=== PATIENT | male | born 2000 | race African-American/Black ===

== ENCOUNTER 2025-06-24 13:03 | Outpatient (AMB) | payer OTHER, SELFPAY ==
[2025-06-24 13:11] VITALS: BMI 39.4
--- NOTE | 2025-06-24 13:11 | A.OFFVIS_ITS ---
VS Expanded 06/24/25 13:11 07/02/25 12:57 Height 5 ft 9 in 5 ft 9 in Weight 266 lb 15.677 oz 267 lb BMI 39.4 39.4 Intake Visit Reasons: Obesity Nutrition Presentation Details: Pt presents MNT for obesity Food frequency fruits:0-1/d vex/wk dairy>4/d fish:0-1/wk fried foods: 3-4 x/wk Eating out /ordering: >1/d beverages: water, juice, soda etoh/smoking-- physical activity: ADL no food allergies ZBM-Dwtuwaz-Es.Jeor Equation Height: 5 ft 9 in Weight: 267 lb Resting Metabolic Rate: 2197.10 Calculated Activity Level: Sedentary Calories Needed to Maintain Weight: 2636.52 Diagnosis Nutrition problem #1: excessive energy intake As related to (etiology) #1: diagnosis As evidenced by (sign/symptom) #1: high BMI (39.4 on May/2025) and knowledge deficit of diet Assessment & Plan Assessment & Plan (1) Obesity (BMI 30-39.9): Code(s): E66.9 - Obesity, unspecified Category: Medical Plan: current wt: 121 kg ( 06/22 ) est kcal needs as per MSJ: 2600 est protein needs as per 1 g/kg BW: 120-130 est fluid needs as per 30 ml/kg BW: 3600 Recommended fiber > 12 g /day and gradually increase up to 25-28 g /day or as tolerated REc sodium intake :< 2300 mg/d Nutrition topics discussed : Reviewed (R), Pt verbalized understanding (V) , not applicable (N/A) R, : Healthy Plate Method Concept: R, V, N/A: Carbohydrates: food sources of carbohydrates, relationship of carbohydrates to blood glucose, fatty liver GI health. Recommended total amount of carbohydrates per meals and snack. Differences between simple carbohydrates and complex carbohydrates R, V, N/A: Lean protein foods including vegan , vegetarian sources of protein. Benefits of protein (including but not limited to healing, nutritional value , benefits in weight loss, glucose control R, V, N/A: Fats : Source of fats, benefits of fats. Difference between satur ated and unsaturated fats. Saturated fats and its contribution to inflammation R, V, N/A: Fiber: food sources and role of fiber in the diet (including but not limited to its role as a prebiotic, benefits in constipation, role in IBS , role in glucose control and cholesterol level) R, V, N/A: Hydration: role of hydration and prevention of dehydration or over hydration. Foods and water content. R, V, N/A: Vitamins and Minerals in foods and supplements R, V, N/A: Interpreting food labels, including serving size, macronutrients, vitamins, minerals, allergens, ingredient list , % daily value Patient Instructions: -work on choosing lower sugar beverages, reducing on added sugars, see list of options -follow healthy plate method at dinner 4 x/ week - Coding Level of Care Code Nutr Indiv Intake (72529) Diagnoses Obesity (BMI 30-39.9) E66.9 Time Spent (min) 30
--- OUTSIDE RECORDS SUMMARY | 2025-06-24 16:33 | XMS_ITS | Clinical Summary ---
Author Organization [address] [facility] Address [address] [place] [address] Phone Care Team Providers Care Message Clerk Name Role Phone Latosha Corbin MD Primary Care Provider [phone] Allergies No known active allergies Medications acetaminophen (TYLENOL) 500 mg tablet Take 1 tablet (500 mg total) by mouth every 6 (six) hours if needed for mild pain, moderate pain, headaches or fever - temperature GREATER than 38 C (100.4 F). 30 tablet 2 5 Active Active Problems Problem Noted Date Diagnosed Date Vitamin D deficiency 08/01/2023 Obesity (BMI 30-39.9) 07/29/2023 Encounters Date Type Department Care Team Description 03/26/2025 12:00 PM EDT Office Visit Internal Medicine [address] [place] [address] Latosha Corbin MD Vitamin D deficiency (Primary Dx); Class 3 severe obesity due to excess calories without serious comorbidity with body mass index (BMI) of 40.0 to 44.9 in adult (CMS/HCC V24, CMS/HCC V28) from Last 3 Months Immunizations Immunization Administration Dates Next Due Influenza Quadrivalent, 0.5m l, preservative free (Fluarix; FluLaval; Fluzone) ages 6mo and older (Afluria) 3yo and older 08/13/2020 Surgical History Surgery Date Site/Laterality Comments OTHER SURGICAL HISTORY Left PROCEDURE: HISTORY OTHER; COMMENT: Done when 9 y old Family History Medical History Relation Name Comments Diabetes Maternal Grandfather Hypertension Maternal Grandfather Alcohol abuse Maternal Grandmother Hypertension Mother Relation Name Status Comments Maternal Grandfather Maternal Grandmother Mother Paternal Grandfather Social History Tobacco Use Types Packs/Day Years Used Date Smoking Tobacco: Never Smokeless Tobacco: Never Tobacco Cessation:Counseling Given: Not Answered Alcohol Use Standard Drinks/Week Comments Yes 0 (1 standard drink = 0.6 oz pur e alcohol) Sex and Gender Information Value Date Recorded Sex Assigned at Male 10/01/2024 4:16 PM EST Legal Sex Male 5:15 AM EST Gender Identity Male 10/01/2024 4:16 PM EST Sexual Orientation Straight 10/01/2024 4: 16 PM EST Obstetrics History Last Filed Vital Signs Vital Sign Reading Time Taken Comments Blood Pressure 132/62 03/26/2025 11:55 AM EDT Pulse 95 03/26/2025 11:55 AM EDT Temperature 36.1 C (97 F) 09/18/2024 11:39 AM EST Respiratory Rate - - Oxygen Saturation 98% 03/26/2025 11:55 AM EDT Inhaled Oxygen Concentration - - Weight 122 kg (269 lb) 03/26/2025 11:55 AM EDT Height 172.7 cm (5' 8 ) 03/26/2025 11:55 AM EDT Body Mass Index 40.9 03/26/2025 11:55 AM EDT Plan of Treatment Health Maintenance Due Date Last Done Comments DTaP,Tdap,and Td Vaccines (6 - Tdap) 2012 05/11/2006, 03/19/2003, 05/22/2002, Additional history exists HPV Vaccines (1 - Male 3-dose series) 2016 Meningococcal B Vaccine (1 of 2 - Standard) 2017 HIV Screening 08/01/2022 Hepatitis C Screening 08/01/2022 Social Influencers of Health Screening 08/01/2022 Depression Screening 08/29/2024 COVID-19 Vaccine (4 - season) 2025 02/16/2022, 08/30/2021, 08/08/2021 Influenza Vaccine (#1) 2025 08/13/2020, 2012 Cholesterol Screening (Lipid Panel) 07/29/2028 07/29/2023 RSV Immunization Adult Patients (1 - 1-dose 75+ series) 2076 Hepatitis B Vaccines Completed 08/17/2002, 2001, 2001 HIB Vaccines Completed 03/19/2003, 10/27, 05/22/2002, Additional history exists Pneumococcal Vaccine: Pediatrics (0 to 5 Years) and At-Risk Patients (6 to 49 Years) Completed 03/19/2003, 05/22/2002, 03/16/2002, Additional history exists IPV Vaccines Completed 05/11/2006, 04/30, 03/16/2002, Additional history exists MMR Vaccines Completed 05/11/2006, 2002 Varicella Vaccines Completed 12/25/2007, 2002 Meningococcal ACWY Vaccine Aged Out 04/10/2021 N o longer eligible based on patient's age to complete this topic Hepatitis A Vaccines Aged Out No long er eligible based on patient's age to complete this topic RSV Immunization Patients Under 20 months Aged Out No longer eligible based on patient's age to complete this topic Procedures Procedure Name Priority Date/Time Associated Diagnosis Comments LIPID PANEL Routine 07/29/2023 from Last 3 Months or Most Recently Relevant to Health Maintenance Results * Lipid panel (07/29/2023) LDL/HDL Ratio 4 Triglycerides 93 mg/dL Cholesterol 179 mg/dL HDL 47 mg/dL LDL Cholesterol 114 mg/dL Blood Venous blood specimen / Unknown Historical Provider LAB BLOOD ORDERABLES Meagan l Result from Last 3 Months or Most Recently Relevant to Health Maintenance Insurance [facility] [employer] [facility] Care Teams Message Clerk Relationship Specialty Start Date End Date Latosha oCrbin MD [address] [place] [id number] PCP - General 07/06/23
--- OUTSIDE RECORDS SUMMARY | 2025-06-24 16:33 | XMS_ITS ---
Author Name [facility] Organization Unknown Care Team Organization Name Specialty Phone Email Start Date End Da camacho [facility] Latosha Corbin Primary Care 06/28/2023 024
[2025-07-02 18:07] VITALS: BMI 39.4
== END 2025-06-24 13:38 | disposition home or self-care (01) ==
LOC: HO.ENCR 13:03
PROVIDERS: PCP Student in an Organized Health Care Education/Training Program; Visit Provider Dietitian, Registered
DX: E66.9 Obesity, unspecified (principal)

== ENCOUNTER → 2025-06-24 13:03 | Outpatient (BNVA) | payer OTHER, SELFPAY | PROVIDERS: PCP Student in an Organized Health Care Education/Training Program; Visit Provider Dietitian, Registered | DX: E66.9 Obesity, unspecified (principal) | CPT/HCPCS: 97802 ==